=== PATIENT | female | born 1950 | race Caucasian/White ===

== ENCOUNTER 2023-10-02 12:44 | Day surgery (SDC) | payer OTHER, SELFPAY ==
[2023-10-02] VITALS (7 sets, daily range): BP systolic 88–117; BP diastolic 53–71; PULSE 60–76; RESP 14–23; TEMP 36.5–36.6; O2SAT 96–99
--- NOTE | 2023-10-02 | PATH_ITS ---
[facility] Accession Number: [id number] No. of containers..05 Tissue . 01 Material submitted: . PART A: duodenum - DUODENUM PART B: gastrointestinal site - ANTRUM PART C: esophagus - ESOPHAGUS PART D: gastrointestinal site - GASTRIC POLYPS PART E: esophagus, E-G Junction - GE JUNCTION . 01 Diagnosis: A. Duodenum, Biopsy: Small bowel mucosa with no diagnostic abnormality. Negative for active inflammation, features of sprue, dysplasia, or malignancy. . B. Gastric Antrum, Biopsy: Gastric antral and body mucosa with no diagnostic abnormality. No evidence of Helicobacter organisms on H/E stain. Negative for intestinal metaplasia. Negative for dysplasia or malignancy. . C. Esophagus, Biopsy: Squamous epithelium with no diagnostic abnormality. Intraepithelial eosinophils are not increased. Negative for dysplasia and malignancy. . D. Gastric Polyps, Biopsies: Fundic gland polyps. No evidence of Helicobacter organisms on H/E stain. Negative for intestinal metaplasia. Negative for dysplasia and malignancy. . E. Gastroesophageal Junction, Biopsy: Squamocolumnar junctional mucosa with mild reactive features of reflux esophagitis. Negative for specialized intestinal metaplasia, dysplasia or malignancy. [facility] 10/04/2023 1325 Local . 01 Electronically signed: . Shade Patten MD, PhD, Pathologist NPI- [id number] . 01 Gross description: . Part A: DUODENUM: Received in formalin are 2 fragment(s) of alonzo, soft tissue measuring 0.2 x 0.2 x 0.2 cm to 0.3 x 0.2 x 0.2 cm submitted entirely in 1 cassette(s) Part B: ANTRUM: Received in formalin are 2 fragment(s) of alonzo, soft tissue measuring 0.1 x 0.1 x 0.1 cm to 0.3 x 0.3 x 0.2 cm submitted entirely in 1 cassette(s) Part C: ESOPHAGUS: Received in formalin are 2 fragment(s) of alonzo, soft tissue measuring 0.2 x 0.2 x 0.1 cm to 0.3 x 0.3 x 0.1 cm submitted entirely in 1 cassette(s) Part D: GASTRIC POLYPS: Received in formalin are 2 fragment(s) of alonzo, soft tissue measuring 0.2 x 0.2 x 0.2 cm to 0.3 x 0.3 x 0.3 cm submitted entirely in 1 cassette(s) Part E: GE JUNCTION: Received in formalin is 1 fragment(s) of alonzo, soft tissue measuring 0.3 x 0.2 x 0.2 cm submitted entirely in 1 cassette(s) /SHAILA 10/03/2023 2238 Local . 01 Pathologist provided ICD-10: R13.10, K21.9, K31.7 . 01 CPT . 102300, 756807, 763636, 869601, 220270 Specimen Comment: A courtesy copy of this report has been sent to [phone] Performed at: 01 [facility] [address] [place] [address], [place], [place] [id number] MD Heron Priest MD Phone: [phone]
[2023-10-02] MEDS: LACTATED RINGERS 1,000 ML 120 ML IV (13:08)
--- NOTE | 2023-10-02 13:11 | PM.HP.1 ---
History of Present Illness History of Present Illness Date Patient Seen: 10/02/23 Time Patient Seen: 13:11 Chief complaint: SDC Narrative: 73-year-old female with dysphagia here for EGD. I reviewed Tian Fiore's note. No significant changes. Review of Systems Review of Systems ROS: Yes All systems reviewed with the patient and are negative except as otherwise documented Exam Const General: cooperative HENMT Head: normal to inspection Eyes General: appearance normal, both eyes and all related structures Neck Neck: normal visual inspection Chest Chest: normal inspection of the chest Resp Effort & Inspection: normal respiratory effort Cardio Rate: regular rate GI Inspection: normal to inspection Skin General: no rashes or lesions noted Neuro General: patient alert and patient awake Extrem General: normal to inspection and no pedal edema Psych Appearance: grossly normal Assessment & Plan Assessment & Plan narrative: 73-year-old female with 3 months of intermittent dysphagia and chest pain of uncertain etiology. Diagnostic and potentially therapeutic EGD is pursued today.
--- NOTE | 2023-10-02 13:13 | PM.PREOP ---
Pre-operative Note Interval Note History & Physical reviewed/Exam performed by Physician: Yes Changes to H&P: No ASA Class (for procedural sedation): II
--- NOTE | 2023-10-02 14:02 | PM.OP.EGD ---
Operative Date/Time/Diagnoses Date of procedure: 10/02/23 Time of procedure: 14:02 Pre-op diagnosis: Dysphagia, nausea, weight loss Post-op diagnosis: same Procedure & Clinicians Study performed: EGD with biopsies Same procedure as scheduled: Yes Indications: Dysphagia, nausea, weight loss Surgeon: Sadi Walter Procedure Notes SCOAP/Timeout: Done Procedure in detail: After the risks and benefits were explained, written and verbal informed consent was obtained. The patient was brought into the procedure room and placed into the left lateral decubitus position. Please see anesthesia note for sedation details. The scope was introduced into the mouth through the bite block and advanced under direct visualization to the 2nd portion of the duodenum. The scope was slowly withdrawn carefully examining the mucosa for any defects or lesions. Retroflexed views were accomplished in the stomach. The stomach was decompressed, the scope was then removed from the patient who tolerated the procedure well. Sedation minutes: 14 Complications: none Impression: 1. Duodenum: No significant pathology from the bulb through to the 2nd portion. Random D2 biopsies were taken to exclude sprue considering the patient's reported history of unknown weight loss. 2. Stomach: No ulcers no outlet obstruction no mass lesions. Mild erythematous gastropathy and therefore biopsies were taken from the antrum for exclusion of Helicobacter infection. Retroflexed views of the LES revealed a sliding hiatal hernia and a Hill grade 2 flap valve. There were a few diminutive proximal gastric polyps. One of the larger 5 mm ones was sampled with cold forceps for a manufacturer's service representative histology. 3. Esophagus: The squamocolumnar junction appeared to correlate with the top of the gastric folds. The GEJ was at approximately 40 cm from the incisors. There was an approximately 1 cm sliding hiatal hernia. No overt esophagitis. There was arguably some very subtle irregularity at the GE junction and a biopsy was therefore acquired from this location for histopathologic analysis. I did not see any stricturing. No mass lesions. No Rosa overgrowth. Visually this did not suggest obvious eosinophilic infiltration, but biopsies from the midesophagus were additionally acquired for exclusion of eosinophilic esophagitis. Endoscopic diagnosis 1. Mild gastropathy 2. Diminutive gastric polyps 3. Small sliding hiatal hernia Post-procedure Plan for aftercare: 1. Await histopathology. 2. If Helicobacter is found, it will need to be eradicated with standard triple therapy. 3. Consider a trial of [id number] anti-reflux therapy on a daily basis with something such as famotidine 20 mg daily. 4. Follow up GI clinic. If there are persistent symptoms of dysphagia, consider esophageal pH and manometry. Disposition: PACU
== END 2023-10-02 14:42 | disposition home or self-care (01) ==
PROVIDERS: PCP Family Medicine; Referring Provider Internal Medicine Gastroenterology; Visit Provider Internal Medicine Gastroenterology
PROC: 0DJ08ZZ Inspection of Upper Intestinal Tract, Via Natural or Artificial Opening Endoscopic (ICD-10-PCS; CPT 43235; principal; 2023-10-02 13:30)
DX: R13.10 Dysphagia, unspecified (principal); R11.0 Nausea; R63.4 Abnormal weight loss; R07.9 Chest pain, unspecified; K44.9 Diaphragmatic hernia without obstruction or gangrene; K31.7 Polyp of stomach and duodenum; K31.9 Disease of stomach and duodenum, unspecified
CPT/HCPCS: 43239; J2704